=== PATIENT | male | born 1955 | race Caucasian/White ===

== ENCOUNTER 2018-03-04 06:13 | Inpatient (IN) ==
[2018-02-26 15:18] LABS: Appearance,Urine CLEAR; Bacteria,Urine 0 /hpf (0); Bilirubin,Urine NEG (NEG); Color,Urine STRAW; Glucose,Urine (UA) NEGATIVE (NEG); Leukocyte Esterase,Urine NEG /uL (NEG); Mucus,Urine FEW /hpf (0); Protein,Urine NEG (NEG); Specific Gravity,Urine 1.011 (1.000-1.035); Urine Blood 0.03 mg/dL (<0.03); Urine RBC < 1 /hpf (0-1); Urine Squamous Epithelial Cell 0 /hpf (0-4); Urine WBC 0 /hpf (0-4); Urobilinogen,Urine NEG (NEG)
[2018-02-26 16:00] LABS: Blood Urea Nitrogen 12 mg/dl (8-23)
[2018-02-26 16:03] LABS: Basophils # (Auto) 0 K/mcL (0.0-0.3); Basophils % (Auto) 0.4 % (0.0-2.0); Eosinophils # (Auto) 0.2 K/mcL (0.0-0.7); Eosinophils % (Auto) 2.8 % (0.0-7.0); Granulocytes % (Auto) 61.7 % (38.0-78.0); Lymphocytes # (Auto) 1.7 K/mcL (1.5-4.8); Lymphocytes % (Auto) 25.2 % (15.5-49.0); Mean Cell Volume 91.9 fL (80.0-100.0); Mean Corpuscular HGB Conc 33.2 g/dL (31.0-36.0); Mean Corpuscular Hemoglobin 30.5 pg (26.0-34.0); Monocytes # (Auto) 0.7 K/mcL (0.1-0.9); Monocytes % (Auto) 9.9 % (1.0-12.0); Platelet Count 248 K/mcL (140-440); Red Cell Distribution Width 12.8 % (11.5-14.5)
[2018-03-04] MEDS ORDERED: PREGABALIN 75 MG CAPSULE PO SCH (07:00)
[2018-03-04] MEDS ORDERED: ceFAZolin 1 GM VIAL IV SCH (07:00)
[2018-03-04] MEDS ORDERED: 0.9 % SODIUM CHLORIDE 9 ML, KETOROLAC 30 MG, ROPIVACAINE HCL/PF 49.5 ML, EPINEPHrine 0.... IJ SCH (07:00)
[2018-03-04] MEDS ORDERED: oxyCODONE 10 MG TAB.ER.12H PO SCH (07:00)
[2018-03-04] MEDS ORDERED: CELECOXIB 200 MG CAPSULE PO SCH (07:00)
[2018-03-04] MEDS ORDERED: ROPIVACAINE HCL/PF 20 ML VIAL IJ ONE (10:00)
[2018-03-04] MEDS ORDERED: DEXAMETHASONE 10 MG/ML VIAL IV ONE (10:00)
[2018-03-04] MEDS ORDERED: GLYCOPYRROLATE 0.2 MG/ML VIAL IV ONE (10:00)
[2018-03-04] MEDS ORDERED: ONDANSETRON 4 MG/2 ML VIAL IV ONE (10:00)
[2018-03-04] MEDS ORDERED: ePHEDrine 50 MG/ML AMPUL IV ONE (10:00)
[2018-03-04] MEDS ORDERED: MIDAZOLAM 2 MG/2 ML VIAL IV ONE (10:00)
[2018-03-04] MEDS ORDERED: KETAMINE 100 MG/ML ML IV ONE (10:00)
[2018-03-04] MEDS ORDERED: LIDOCAINE HCL/PF 100 MG/5 ML SYRINGE IV ONE (10:00)
[2018-03-04] MEDS ORDERED: TRANEXAMIC ACID 1,000 MG/10 ML VIAL IV ONE ×2 (10:00→11:32)
[2018-03-04] MEDS ORDERED: PHENYLEPHRINE 10 MG/ML VIAL IV ONE (10:00)
[2018-03-04] MEDS ORDERED: PROPOFOL 200 MG/20 ML VIAL IV ONE (10:00)
[2018-03-04] MEDS ORDERED: ACETAMINOPHEN 1,000 MG/100 ML BOTTLE IV ONE (10:41)
[2018-03-04] MEDS ORDERED: METHOCARBAMOL 1,000 MG/10 ML VIAL IV PRN (10:41)
[2018-03-04] MEDS ORDERED: FLUMAZENIL 0.1 MG/ML ML IV PRN (10:41)
[2018-03-04] MEDS ORDERED: fentaNYL 100 MCG/2 ML VIAL IV PRN (10:41)
[2018-03-04] MEDS ORDERED: ONDANSETRON 4 MG/2 ML VIAL IV PRN ×2 (10:41→11:32)
[2018-03-04] MEDS ORDERED: BENZOCAINE/MENTHOL 1 LOZENGE PO PRN ×2 (10:41→11:32)
[2018-03-04] MEDS ORDERED: MEPERIDINE 25 MG/ML SYRINGE IV PRN (10:41)
[2018-03-04] MEDS ORDERED: NALOXONE HCL 0.4 MG/ML VIAL IV PRN (10:41)
[2018-03-04] MEDS ORDERED: LACTATED RINGERS 250 ML IV PRN (10:41)
[2018-03-04] MEDS ORDERED: IPRATROPIUM/ALBUTEROL 3 ML AMPUL.NEB NEB PRN (10:41)
[2018-03-04] MEDS ORDERED: LACTATED RINGERS 1,000 ML IV SCH (10:45)
[2018-03-04] MEDS ORDERED: BISACODYL 10 MG SUPP.RECT PR PRN (11:32)
[2018-03-04] MEDS ORDERED: MAGNESIUM HYDROXIDE 30 ML ORAL.SUSP PO PRN (11:32)
[2018-03-04] MEDS ORDERED: POLYETHYLENE GLYCOL 3350 17 GM PACKET PO PRN (11:32)
[2018-03-04] MEDS ORDERED: FLEETS ADULT ENEMA PR PRN (11:32)
--- NOTE | 2018-03-04 11:32 | Brief Operative Note ---
Date of procedure: 03/04/18 Pre-op diagnosis: R knee DJD Post-op diagnosis: same Procedure: Right robotic assisted total knee arthroplasty Grafts/Implants: Yes (Kassi 3 CR femur, 4 tibia, 9mm insert) Anesthesia: spinal, GLMA Findings: arthritis Complications: none Surgeon: Uziel Estrada Fine Grade Operator: Servando Urrutia Estimated blood loss (cc): 30 Specimens Removed/Pathology: none sent Condition: stable Disposition: PACU
[2018-03-04] MEDS ORDERED: traMADol 50 MG TABLET PO PRN (11:35)
[2018-03-04] MEDS ORDERED: ALBUTEROL SULFATE 1 PUFF INHALER INH PRN (11:35)
[2018-03-04] MEDS ORDERED: OXYMETAZOLINE 1 SPRAY BOTTLE NAS PRN (11:35)
[2018-03-04] MEDS: KETOROLAC 30 MG/ML VIAL IV SCH ×3 (12:41→23:39)
--- NOTE | 2018-03-04 14:52 | XRay Report ---
CLINICAL INFORMATION: Post-op total knee. COMPARISON: None. FINDINGS: Total knee prostheses is anatomically aligned. No osseous abnormality.. Periarticular gas and soft tissue swelling seen as as expected. IMPRESSION: Negative Interpreted and Authenticated by: Bernardo Tillman 03/04/18
[2018-03-04] MEDS: 0.9 % SODIUM CHLORIDE 1,000 ML IV SCH (15:12)
[2018-03-04] MEDS: 0.9 % SODIUM CHLORIDE 10 ML SYRINGE IV SCH ×2 (15:14→20:33)
[2018-03-04] MEDS: ceFAZolin 1 GM VIAL IV SCH (17:30)
--- NOTE | 2018-03-04 19:32 | Operative Note ---
DATE OF OPERATION: 03/04/2018 PREOPERATIVE DIAGNOSIS: Right knee severe osteoarthritis. POSTOPERATIVE DIAGNOSIS: Right knee severe osteoarthritis. PROCEDURE PERFORMED: Right robotic-assisted total knee arthroplasty placing a Kassi Triathlon size 3 cruciate retaining femoral component, size 4 tibial baseplate, a 9 mm X3 tibial insert with a 33 mm patellar button. SURGEON: Uziel Estrada M.D. EXECUTIVE RECRUITER: Sundar Urrutia PA-C. ANESTHESIA: Spinal plus general. DRAINS: None. SPECIMENS: Bone cuts which were discarded. BLOOD LOSS: 30 mL. COMPLICATIONS: None. POSTOPERATIVE CONDITION: Stable. INDICATIONS FOR SURGERY: This is a 62-year-old male with longstanding progressive worsening severe right knee pain. Radiographs showed severe lkeo-el-bpye osteoarthritis with varus deformity. FINDINGS AT SURGERY: As above. Post implantation showed good limb alignment with patellar tracking, and joint stability. PROCEDURE IN DETAIL: The patient had been seen preoperatively. Informed consent had been obtained after discussion of risks and benefits of surgery. Risks including, but not limited to, bleeding, possibly requiring transfusion; infection, possibly requiring implant removal and prolonged IV antibiotics; injury to nerves, blood vessels, other surrounding structures; anesthetic risks; incomplete or no resolution of symptoms; stiffness; swelling; instability; pain; DVT and pulmonary embolus risks; and the possibility of needing further revision surgery. He understood and wished to proceed. Correct operative site was marked and then patient received spinal anesthesia. He was then taken to the operating room and LMA general given. The right lower extremity was carefully prepped and draped in normal sterile fashion, and a time-out was performed verifying patient name, operative site, and plan. Esmarch was used to exsanguinate the extremity and tourniquet was inflated. Midline incision was made with a scalpel through skin and subcutaneous tissue. Irrisept was irrigated and then a medial parapatellar arthrotomy made. Subperiosteal exposure was done of the anterior medial tibia. Anterior horns of menisci were removed. ACL was transected and retropatellar fat pad excised. Femoral and tibial checkpoints were placed. We made two stab incisions over the femur and two over the tibia and then placed bicortical pins and the arrays were connected. The hip center of rotation was registered and green probe was used to register medial and lateral malleoli. We also used the green probe to do double-checks of the femoral and tibial checkpoints. The blue probe was used to do our mapping and then rongeur was used to remove osteophytes. We then checked our flexion-extension gaps and adjusted implants to give us 17 mm gaps in all four compartments. We also verified patellar tracking. We then used the robotic assistance to make our bone cuts. The tibia was prepared. Osteophytes were removed off the posterior femur. Trial implants were placed. We checked our range of motion and stability which was excellent. The patella was prepared by a freehand technique. Post-resection measured to verify that overall implant thickness would be equal to pre-resection and then this was sized to a 33 and medialized. Holes were drilled. A lateral facetectomy was performed. We then checked our patellar tracking which was good. We removed the trial implants. Antibiotic cement was mixed while we filled the joint with Irrisept, after a minute pulse lavaged with saline. We then used a CO2 gun to clean and dry the cancellous bone surfaces and then cemented the tibia. Excess cement was removed and then cemented the femur. Excess cement was removed and then the 9 insert trial was placed. The knee was taken into extension, and the patellar button was cemented. The joint was filled with Irrisept. We then injected pain cocktail in the pericapsular and subcutaneous tissues. Once cement had fully hardened, we flexed the knee up and did a final inspection and removal of any excess cement. We removed the insert trial and injected pain cocktail into the posterior capsule. We filled the tray with Irrisept and then impacted the 9 insert. We pulse lavaged copiously with saline, then interrupted [id number] #2 FiberWires were used around the superior quadrant of the patella, and then interrupted [id number] Vicryls around the inferior quadrant. Running #1 Vicryl was used to close the patellar tendon and quad tendon. We did remove checkpoints prior to closure. We also removed our pins for the arrays. After Irrisept irrigation and pulse lavage , we used 2-0 Monocryl for subcutaneous and then erna for skin. Xeroform and sterile dressing were applied. Tourniquet was released. The patient was awakened, extubated, and transferred to recovery in stable condition. SARAN:mayra Job ID: [id number] Doc ID: [id number] Uziel Estrada MD
[2018-03-04] MEDS: HYDROcodone/APAP 10/325MG TABLET PO PRN (20:26)
[2018-03-04] MEDS: DOCUSATE SODIUM 100 MG CAPSULE PO SCH (20:27)
[2018-03-04] MEDS: ASPIRIN 325 MG ENTERIC COATED TABLET PO SCH (20:28)
[2018-03-04] MEDS: FAMOTIDINE 20 MG TABLET PO SCH (20:28)
[2018-03-04] MEDS: [UNRECOGNIZED DRUG - OTHER] NAS SCH (20:29)
[2018-03-04] MEDS ORDERED: SIMVASTATIN 20 MG TABLET PO SCH (21:00)
[2018-03-04] MEDS ORDERED: AMITRIPTYLINE 25 MG TABLET PO SCH (21:00)
[2018-03-04] MEDS ORDERED: SENNOSIDES 1 TABLET PO SCH (21:00)
[2018-03-04] MEDS ORDERED: LISINOPRIL 10 MG TABLET PO SCH (21:00)
[2018-03-04] MEDS ORDERED: CITALOPRAM 20 MG TABLET PO SCH (21:00)
[2018-03-05] MEDS: 0.9 % SODIUM CHLORIDE 1,000 ML IV SCH ×2 (01:21→09:03)
[2018-03-05] MEDS: ceFAZolin 1 GM VIAL IV SCH (01:43)
[2018-03-05] MEDS: HYDROcodone/APAP 10/325MG TABLET PO PRN ×2 (03:44→12:40)
[2018-03-05] MEDS: 0.9 % SODIUM CHLORIDE 10 ML SYRINGE IV SCH (05:52)
[2018-03-05] MEDS: KETOROLAC 30 MG/ML VIAL IV SCH (06:03)
--- NOTE | 2018-03-05 07:40 | Discharge Summary ---
Providers - Providers Patient information: Note initiated : 03/05/18 at 7:36 am Service Date, if different from initiated Date: [] Patient: Modesto Baires 62 y/o M admitted on 03/04/18 for Rt Robotic Total Knee Arthroplasty *!account receivable clerk!*. Chief Complaint: [] Discharge date: 03/05/18 Hospitalization Hospital course: Pt was admitted for a R TKA. Pt was admitted on the day of procedure and spent one night one the floor for IV pain meds, IV abx, and PT. Pt discharged to home with ASA for DVT prophylaxis. Will attend out-pt PT and f/u at [facility] in 2 weeks. Discharge diagnosis: R knee OA Exam - Exam Clean and dry: No (mild bloody drainage) Weight bearing status: as tolerated Ortho Discharge - TKA - Patient Instructions Diet: Regular Diet Activity: activity as tolerated Total Knee Protocol: For Total Knee: Start ROM INDIRA with stationary bike or rocking chair. Work on gaining full extension of knee. Posterior dislocation precautions provided. Hip abductor strengthening and gait training instructions provided. Apply Cryocuff as instructed. Dressing Care: May shower in 2 days - Follow Up Plan Follow Up Appointments: Servando Urrutia PA-C [Physician Electronics Lead] - 03/19/18 11:20 am Disposition: Home, Self-Care Prognosis: Good Rehab Potential: Good Overall status at discharge: patient is progressing back to baseline - Orders For Discharge Prescriptions: Aspirin [Ecotrin] 325 mg PO BID #30 tab.ec HYDROcodone/APAP 10/325MG [[place] 10-325Mg] 1 - 2 tab PO Q4HP PRN #90 tab PRN Reason: Pain Level 3-6 Pending Studies Resuscitation Status Full Code Diet Consistent Carbohydrate Diet Start FriMar 04 1133 Hydrocodone Bitart/Acetaminophen ([place] 10/325mg) 0 tab PO Q4HP PRN PRN Reason: PAIN LEVEL 3-6 Last Admin: 03/05/18 03:44 Dose: 2 tab Admin: 03/04/18 20:26 Dose: 2 tab Amitriptyline HCl (Elavil) 25 mg PO HS JAMES Last Admin: 03/04/18 20:28 Dose: 25 mg Aspirin (Ecotrin) 325 mg PO BID JAMES Last Admin: 03/04/18 20:28 Dose: 325 mg Citalopram Hydrobromide (Celexa) 40 mg PO HS [facility] Last Admin: 03/04/18 20:27 Dose: 40 mg Docusate Sodium (Colace) 100 mg PO BID [facility] Last Admin: 03/04/18 20:27 Dose: 100 mg Famotidine (Pepcid) 20 mg PO BID [facility] Last Admin: 03/04/18 20:28 Dose: 20 mg Flunisolide (Nasalide) 2 spray MARIA ISABEL BID [facility] Last Admin: 03/04/18 20:29 Dose: 2 spray Sodium Chloride (Sodium Chloride 0.9%) 1,000 mls @ 100 mls/hr IV .Q10H [facility] Last Admin: 03/05/18 01:21 Dose: 100 mls/hr Infusion: 03/05/18 01:12 Dose: 100 mls/hr Admin: 03/04/18 15:12 Dose: 100 mls/hr Ketorolac Tromethamine (Toradol) 30 mg IV Q6 [facility] Stop: 03/06/18 06:01 Last Admin: 03/05/18 06:03 Dose: 30 mg Admin: 03/04/18 23:39 Dose: 30 mg Admin: 03/04/18 17:30 Dose: 30 mg Admin: 03/04/18 12:41 Dose: 30 mg Lisinopril (Zestril) 10 mg PO [facility] Last Admin: 03/04/18 20:28 Dose: 10 mg Senna (Senokot) 2 tab PO [facility] Last Admin: 03/04/18 20:27 Dose: 2 tab Simvastatin (Zocor) 40 mg PO [facility] Last Admin: 03/04/18 20:27 Dose: 40 mg Sodium Chloride (Saline Flush) 10 ml IV Q8 [facility] Last Admin: 03/05/18 05:52 Dose: Not Given Admin: 03/04/18 20:33 Dose: Not Given Admin: 03/04/18 15:14 Dose: Not Given Shift Summary 03/05/18 04:49 Shift Summary by Ashish Capellan Pt has rested on & off tonight. RT knee raul wrap C,D,I. NS infusing to his LT F/A @ 100ml/hr. He has been up AMB to & from [place], as well as out in [place] - gait stable w/ FWW & SBA. He is voiding QS - PVR scans 27ml & 41ml - no further scans needed. RT knee pain fairly well controlled w/ scheduled IV Toradol 30mg , & [place] 10 (2) - last dose Norc was @ 0340. Cryo-cuff on & off through the noc. VS - WNL on R.A. - B/P running on the low side. Raul wrap RT knee - C,D,I. He is A&O x4, calm, pleasant, & cooperative. Initialized on 03/05/18 04:49 - END OF NOTE
[2018-03-05] MEDS: FAMOTIDINE 20 MG TABLET PO SCH (08:51)
[2018-03-05] MEDS: ASPIRIN 325 MG ENTERIC COATED TABLET PO SCH (08:51)
[2018-03-05] MEDS: DOCUSATE SODIUM 100 MG CAPSULE PO SCH (08:51)
[2018-03-05] MEDS: [UNRECOGNIZED DRUG - OTHER] NAS SCH (08:54)
== END 2018-03-05 12:51 | disposition home or self-care (01) | DRG 470 ==
LOC: MEDSUR 06:13
PROVIDERS: ADMIT Orthopaedic Surgery; ATTEND Orthopaedic Surgery
CPT/HCPCS: 90686; 97161; A6248; C1713; C1776; J0131; J0690; J1100; J1885; J2001; J2250; J2370; J2405; J2795; J7030; J7040; J7120

== ENCOUNTER 2018-09-09 04:43 | Inpatient (IN) ==
[2018-09-03 13:52] LABS: Appearance,Urine CLEAR; Bilirubin,Urine NEG (NEG); Color,Urine YELLOW; Glucose,Urine (UA) NEGATIVE (NEG); Leukocyte Esterase,Urine NEG /uL (NEG); Protein,Urine NEG (NEG); Specific Gravity,Urine 1.024 (1.000-1.035); Urine Blood NEG mg/dL (<0.03); Urobilinogen,Urine NEG (NEG)
[2018-09-03 15:32] LABS: Blood Urea Nitrogen 14 mg/dl (8-23)
[2018-09-03 15:34] LABS: Basophils # (Auto) 0 K/mcL (0.0-0.3); Basophils % (Auto) 0.4 % (0.0-2.0); Eosinophils # (Auto) 0.2 K/mcL (0.0-0.7); Granulocytes % (Auto) 62.7 % (38.0-78.0); Lymphocytes # (Auto) 1.5 K/mcL (1.5-4.8); Lymphocytes % (Auto) 23.7 % (15.5-49.0); Mean Cell Volume 90.2 fL (80.0-100.0); Mean Corpuscular HGB Conc 32.3 g/dL (31.0-36.0); Monocytes # (Auto) 0.6 K/mcL (0.1-0.9); Monocytes % (Auto) 10.2 % (1.0-12.0); Platelet Count 217 K/mcL (140-440); RBC 4.95 M/mcL (4.50-5.90)
[2018-09-03 15:46] LABS: Estimated Average Glucose(eAG) 117 mg/dL; Hemoglobin A1C 5.7 % HGB (4.0-6.0)
[2018-09-09] MEDS ORDERED: 0.9 % SODIUM CHLORIDE 9 ML, KETOROLAC 30 MG, ROPIVACAINE HCL/PF 49.5 ML, EPINEPHrine 0.... IJ SCH (06:00)
[2018-09-09] MEDS ORDERED: PREGABALIN 75 MG CAPSULE PO SCH (06:00)
[2018-09-09] MEDS ORDERED: CELECOXIB 200 MG CAPSULE PO SCH (06:00)
[2018-09-09] MEDS ORDERED: oxyCODONE 10 MG TAB.ER.12H PO SCH (06:00)
[2018-09-09] MEDS ORDERED: ceFAZolin 2 GM in DEXTROSE 5% IN WATER 50 ML IV SCH (06:00)
[2018-09-09] MEDS ORDERED: IPRATROPIUM/ALBUTEROL 3 ML AMPUL.NEB NEB ONE ×2 (07:31→11:00)
[2018-09-09] MEDS ORDERED: MIDAZOLAM 5 MG/5 ML VIAL IV ONE (13:29)
[2018-09-09] MEDS ORDERED: PHENYLEPHRINE 10 MG/ML VIAL IV ONE (13:29)
== END 2018-09-09 13:30 | disposition home or self-care (01) | DRG 554 ==
LOC: MEDSUR 04:43
PROVIDERS: ADMIT Orthopaedic Surgery; ATTEND Orthopaedic Surgery